=== PATIENT | male | born 1965 | race Two or more races ===

== ENCOUNTER 2019-07-24 09:06 | Emergency (ER) | payer OTHER ==
[2019-07-24 09:11] VITALS: BP 150/89; PULSE 86; TEMP 98; BMI 30.7
[2019-07-24] MEDS ORDERED: KETOROLAC TROMETHAMINE 60 MG/2 ML VIAL IM ONE (09:50)
[2019-07-24] MEDS ORDERED: CYCLOBENZAPRINE HCL 10 MG TABLET (FP) PO ONE (09:50)
[2019-07-24] MEDS ORDERED: KETOROLAC TROMETHAMINE 60 MG/2 ML VIAL ONE (09:51)
[2019-07-24] MEDS ORDERED: CYCLOBENZAPRINE HCL 10 MG TABLET (FP) ONE (09:51)
--- NOTE | 2019-07-24 10:03 | PDOC ---
History of Present Illness - General Chief Complaint: Back Pain Stated Complaint: BACK PAIN Time Seen by Provider: 07/24/19 09:16 History Source: Patient - History of Present Illness Occurred: reports: yesterday Severity: reports: severe Pain Location: reports: back Past History - Past Medical History Allergies/Adverse Reactions: Allergies Allergy/AdvReac Type Severity Reaction Status Date / Time No Known Allergies Allergy Verified 07/24/19 09:10 Home Medications: Ambulatory Orders Acetaminophen [Tylenol -] 1,000 mg PO Q6H #30 tablet 07/24/19 Acetaminophen [Tylenol .Extra-Strength -] 500 mg PO PRN 07/24/19 Aspirin 81 mg PO DAILY 07/24/19 Atorvastatin Ca [Lipitor] 40 mg PO HS 07/24/19 Clopidogrel Bisulfate [Clopidogrel] 75 mg PO DAILY 07/24/19 Cyclobenzaprine HCl [Flexeril -] 10 mg PO HS #9 tablet 07/24/19 Glipizide [Glipizide ER] 5 mg PO DAILY 07/24/19 Metformin HCl [Glucophage] 500 mg PO BID 07/24/19 Ramipril [Altace] 5 mg PO DAILY 07/24/19 Sitagliptin Phosphate [Januvia] 100 mg PO DAILY 07/24/19 Cardiac Disorders: Yes COPD: No Diabetes: Yes HTN: Yes Hypercholesterolemia: Yes - Surgical History Cardiac Surgery: Yes - Psycho Social/Smoking Cessation Hx Smoking History: Never smoked Information on smoking cessation initiated: No Hx Alcohol Use: No Drug/Substance Use Hx: No Review of Systems - Review of Systems Constitutional: No: Chills, Fever ABD/GI: No: Nausea, Vomiting, Abdominal cramping : No: Dysuria, Flank Pain, Hematuria Musculoskeletal: Yes: Back Pain Neurological: No: Numbness, Tingling, Weakness *Physical Exam - Vital Signs Last Vital Signs Temp Pulse Resp BP Pulse Ox 98 F 86 17 150/89 99 07/24/19 09:09 07/24/19 09:09 07/24/19 09:09 07/24/19 09:09 07/24/19 09:09 - Physical Exam General Appearance: Yes: Appropriately Dressed, Mild Distress HEENT: positive: Normal Voice Neck: positive: Supple Respiratory/Chest: negative: Respiratory Distress Gastrointestinal/Abdominal: positive: Soft. negative: Tender, Pulsatile Mass Musculoskeletal: positive: Vertebral Tenderness (to R lower back). negative: CVA Tenderness Integumentary: positive: Dry, Warm Neurologic: positive: Fully Oriented, Alert, Normal Mood/Affect, Motor Strength 5/5, Other (neg SLR) ED Treatment Course - Medications Given in the ED: ED Medications Discontinued Medications Generic Name Dose Route Start Last Admin Trade Name Javier PRN Reason Stop Dose Admin Cyclobenzaprine HCl 5 mg 07/24/19 09:50 07/24/19 09:57 Flexeril - PO 07/24/19 09:51 5 mg ONCE ONE Administration Ketorolac Tromethamine 60 mg 07/24/19 09:50 07/24/19 09:57 Toradol Injection - IM 07/24/19 09:51 60 mg ONCE ONE Administration Medical Decision Making - Medical Decision Making 07/24/19 10:15 54-year-old male history of hypertension, DM, 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 Took 400 Motrin with no relief. No sensory changes , lower extremity weakness, bladder bowel incontinence, or saddle anesthesia. No acute symptoms nausea vomiting fever or chills. No history of previous back pain. Limping in ER see exam M/l MSK back pain No red flags at this time Improved w/ meds here Dc w/ pain control, pmd f/u as needed Discharge - Discharge Information Problems reviewed: Yes Clinical Impression/Diagnosis: Low back pain Qualifiers: Chronicity: acute Back pain laterality: right Sciatica presence: unspecified whether sciatica present Qualified Code(s): M54.5 - Low back pain Condition: Improved Disposition: HOME - Additional Discharge Information Prescriptions: Acetaminophen [Tylenol -] 1,000 mg PO Q6H #30 tablet Cyclobenzaprine HCl [Flexeril -] 10 mg PO HS #9 tablet - Follow up/Referral Referrals: Pricila Perez MD [Primary Care Provider] - - Patient Discharge Instructions Patient Printed Discharge Instructions: Low Back Pain Additional Instructions: Take medication as prescribed and if pain persist please follow-up with your PMD - Post Discharge Activity Work/Back to School Note: Back to Work
== END 2019-07-24 10:21 | disposition home or self-care (01) ==
LOC: JERFT 09:06
PROC: 3E0233Z Introduction of Anti-inflammatory into Muscle, Percutaneous Approach (ICD-10-PCS; principal; 2019-07-24)
DX: M54.5 Low back pain (principal); E11.9 Type 2 diabetes mellitus without complications; I10 Essential (primary) hypertension; Z95.1 Presence of aortocoronary bypass graft
CPT/HCPCS: 99281-25